=== PATIENT | female | born 1975 | race Caucasian/White ===

== ENCOUNTER 2022-09-22 14:49 | Outpatient (REF) | payer BC, SELFPAY ==
[2022-09-22 15:37] LABS: HCT 41.6 % (36.0-46.0); HGB 13.3 g/dL (11.2-15.7); MCH 29.8 pg (27.0-33.0); MCV 93 fL (80-95); MPV 11.8 fL (8.0-11.0); Platelet Count 251 10^3/uL (130-400); RBC 4.47 10^6/uL (3.93-5.22); RDW 12.7 % (11.7-14.6); RDW-SD 43.8 fL; WBC 6.78 10^3/uL (4.4-10.8)
[2022-09-22 16:14] LABS: BUN 10 mg/dL (7-18); CREATININE 0.8 mg/dL (0.55-1.02); Calcium 9.6 mg/dL (8.5-10.1); Chloride 104 mmol/L (98-107); Estimated GFR 92.54 (mL/min/1.73m2); Glucose 95 mg/dL (74-106); Potassium 4.3 mmol/L (3.5-5.1); Sodium 142 mmol/L (136-145); TSH (W/Ref FT4) 0.78 uIU/mL (0.36-3.74); Vitamin B12 559 pg/mL (193-986)
[2022-09-22 17:43] LABS: Vitamin D 25 Total 20.1 ng/mL (30-100)
== END 2022-09-22 14:50 | disposition home or self-care (01) ==
LOC: NCHCN 14:49
PROVIDERS: Visit Provider Family Medicine
DX: R53.83 Other fatigue (principal); F41.8 Other specified anxiety disorders; R41.3 Other amnesia; E55.9 Vitamin D deficiency, unspecified
CPT/HCPCS: 80048; 82306; 85027; 82607; 84443

== ENCOUNTER 2025-01-12 16:22 | Outpatient (REF) | payer BC, SELFPAY ==
--- NOTE | 2025-01-12 13:30 | PAPFT_PTH ---
PATIENT: Mandi De LOC: [facility]#:[id number] AGE/SX: 49/F ROOM: RE01/12/[address]: Nataliia Lane : 1975 BED: DIS: 01/12/2025 SPEC #: [id number] RECD: 01/13/25 12:58 STATUS: EZ REQ #: [id number] RIAZ: 01/12/25 13:[address]: Nataliia Lane DEPT: [facility] Cytology RECD BY: Lacy Tiwari ENTERED: 01/13/25 12:59 SP TYPE: PAPFT OTHR DR: Unknown,Unknown Tissues: 1 - CX/ENDOCX FOR PAP SMEARS Procedures: PAP THIN PREP/[facility] Screening HPV DNA PROBE Comments: [id number] (HPV 16 & 18/45)
== END 2025-01-12 16:23 | disposition home or self-care (01) ==
LOC: NCHCN 16:22
PROVIDERS: Visit Provider Family Medicine
DX: Z12.4 Encounter for screening for malignant neoplasm of cervix (principal)
CPT/HCPCS: 88142; 87624